=== PATIENT | female | born 1980 | race Caucasian/White ===

== ENCOUNTER → 2016-12-07 | Outpatient (CLI) | payer OTHER ==
[~2016-12-07] MED LIST: IRON325 MG PO; MOTRIN 800800 MG/TAB PO; PERCOCET 325 MG1 TA2 PO; PRENATAL1 TA1 PO; TYLENOL PM EXTR1 TA1 PO
[2016-12-07 18:33] LABS: HEMATOCRIT 38.5 % (37.0-47.0); HEMOGLOBIN 13.6 g/dl (12.5-16.0); MEAN CELL VOLUME 89 fl (80.0-100.0); MEAN CORPUSCULAR HEMOGLOBIN 31 pg (27.0-31.0); MEAN CORPUSCULAR HGB CONC 35 g/dl (33.0-37.0); MEAN PLATELET VOLUME 10.7 fl (7.4-10.4); PLATELET COUNT 196 K/mm3 (130-400); RED BLOOD COUNT 4.34 M/mm3 (4.10-5.30); REDCELL DISTRIBUTION WIDTH-CV 11.5 % (11.5-14.5); WHITE BLOOD COUNT 4.4 K/mm3 (4.8-10.8)
[2016-12-07 18:46] LABS: ALBUMIN 4.2 gm/dL (3.5-5.0); BILIRUBIN,TOTAL 0.7 mg/dL (0.0-1.0); CALCIUM 9.2 mg/dL (8.4-10.2); CREATININE, serum 0.79 mg/dL (0.52-1.25); POTASSIUM 3.6 mmol/L (3.4-5.0)
[2016-12-07 19:16] LABS: THYROID STIMULATING HORMONE 0.762 uIU/mL (0.465-4.680)
== END ==
LOC: COL.LAB 16:58
PROVIDERS: Family Medicine
DX: R53.83 Other fatigue (principal)

== ENCOUNTER → 2017-04-29 | Outpatient (REF) | LOC: WSOH 17:45 | DX: Z02.89 Encounter for other administrative examinations (principal) ==

== ENCOUNTER → 2019-06-13 | Outpatient (CLI) | payer OTHER | LOC: ZCOL.LAB 17:14 | DX: R30.0 Dysuria (principal) ==

== ENCOUNTER 2019-11-08 09:17 | Outpatient (RCR) | payer OTHER | END 2020-02-06 | disposition home or self-care (01) | LOC: WSOH | DX: Z77.21 Contact with and (suspected) exposure to potentially hazardous body fluids (principal); W46.0XXA Contact with hypodermic needle, initial encounter; Y99.0 Civilian activity done for income or pay; Z96.651 Presence of right artificial knee joint; Z98.890 Other specified postprocedural states; Z90.89 Acquired absence of other organs ==

== ENCOUNTER 2020-03-25 08:25 | Outpatient (RCR) | payer OTHER | END 2020-06-23 | disposition home or self-care (01) | LOC: WSOH | DX: Z77.21 Contact with and (suspected) exposure to potentially hazardous body fluids (principal); W46.1XXD Contact with contaminated hypodermic needle, subsequent encounter; Z90.49 Acquired absence of other specified parts of digestive tract; Z90.89 Acquired absence of other organs; Z98.890 Other specified postprocedural states; Y99.0 Civilian activity done for income or pay ==

== ENCOUNTER → 2020-08-27 | Outpatient (REF) | LOC: WSOH 10:01 | DX: Z02.89 Encounter for other administrative examinations (principal) ==